=== PATIENT | male | born 1975 | race Caucasian/White ===

== ENCOUNTER 2019-04-30 17:34 | Emergency (ER) | payer SELFPAY ==
[~2019-04-30] VITALS: Ht 182.9 cm; Wt 99.8 kg
--- NOTE | 2019-04-30 17:34 | NUR ---
BROUGHT IN BY OLEG ABMROSIO, REPORT GIVEN TO WILLIAM
[2019-04-30 17:35] VITALS: BP_SYST 137
--- NOTE | 2019-04-30 17:38 | NUR ---
Pt [id number] [facility] law enforcement for medical clearance prior to booking. Pt reports his hands are dry and cracks s/p working on concrete. Denies n/v/d/cp/sob. No other injuries/complaints per pt/noted. Will continue to monitor
--- NOTE | 2019-04-30 17:41 | NUR ---
DR GÓMEZ AT BEDSIDE FOR EVALUATION
[2019-04-30 17:52] VITALS: BP_SYST 129
--- NOTE | 2019-04-30 17:52 | NUR ---
Patient given written and verbal discharge instructions and verbalizes understanding. ER MD Buenrostro discussed with patient the results and treatment provided. Patient in stable condition. ID arm band removed. No Rx given. Patient educated on pain management and to follow up with PMD. Pain Scale 0. Opportunity for questions provided and answered. Medication side effect fact sheet provided.
== END 2019-04-30 17:52 ==
LOC: SED 17:34
DX: Z02.89 Encounter for other administrative examinations (principal)
CPT/HCPCS: 99283

== ENCOUNTER 2019-06-16 03:19 | Emergency (ER) | payer SELFPAY ==
[~2019-06-16] VITALS: Ht 182.9 cm; Wt 97.5 kg
[2019-06-16 03:20] VITALS: BP_SYST 148
[2019-06-16 04:20] VITALS: BP_SYST 137
== END 2019-06-16 04:20 | disposition home or self-care (01) ==
LOC: SED 03:19
DX: S63.592A Other specified sprain of left wrist, initial encounter (principal); W22.8XXA Striking against or struck by other objects, initial encounter; Y93.83 Activity, rough housing and horseplay; Y92.59 Other trade areas as the place of occurrence of the external cause; Y99.8 Other external cause status
CPT/HCPCS: 99284

== ENCOUNTER 2020-04-15 12:18 | Emergency (ER) | payer SELFPAY ==
[~2020-04-15] VITALS: Ht 182.9 cm; Wt 104.3 kg
[2020-04-15 12:18] VITALS: BP_SYST 163
[2020-04-15] MEDS ORDERED: IBUP100T8 PO (13:11)
[2020-04-15] MEDS ORDERED: AMOX-426 PO (13:15)
[2020-04-15 13:23] VITALS: BP_SYST 163
[2020-04-15] MEDS ORDERED: ACET325T PO (13:24)
== END 2020-04-15 13:23 | disposition home or self-care (01) ==
LOC: SED 12:18
DX: K08.89 Other specified disorders of teeth and supporting structures (principal); Z79.899 Other long term (current) drug therapy
CPT/HCPCS: 99283

== ENCOUNTER 2021-05-03 20:13 | Emergency (ER) | payer MEDICAID ==
[~2021-05-03] VITALS: Ht 182.9 cm; Wt 108.9 kg
[~2021-05-03 20:13] MED LIST: ACET325T PO; AMOX-426 PO
[2021-05-03 20:17] VITALS: BP_SYST 122
[2021-05-03] MEDS ORDERED: GABAPENTIN 100 MG CAPSULE PO ONE (20:45)
[2021-05-03] MEDS ORDERED: KETOROLAC TROMETHAMINE 15 MG VIAL IM ONE (20:45)
[2021-05-03] MEDS ORDERED: CYCLOBENZAPRINE HCL 10 MG TABLET (FLEXERIL) PO ONE (20:45)
[2021-05-03] MEDS ORDERED: ACETAMINOPHEN 500 MG TABLET PO ONE (20:45)
[2021-05-03 21:03] LABS: BASOPHILS % (AUTO) 0.3 % (0.0-2.0); EOSINOPHILS # (AUTO) 0.2 K/uL (0.0-0.4); EOSINOPHILS % (AUTO) 3.6 % (0.0-4.0); HEMATOCRIT 42.7 % (36-54); HEMOGLOBIN 14.2 g/dL (14.0-18.0); LYMPHOCYTES # (AUTO) 1.5 K/uL (1.0-5.5); LYMPHOCYTES % (AUTO) 24.7 % (20.5-51.5); MEAN CORPUSCULAR HEMOGLOBIN 30 pg (27-31); MEAN CORPUSCULAR HGB CONC 33 % (32-36); MEAN CORPUSCULAR VOLUME 91 fL (79.0-98.0); MONOCYTES # (AUTO) 0.7 K/uL (0.0-1.0); MONOCYTES % (AUTO) 10.7 % (1.7-9.3); NEUTROPHILS # (AUTO) 3.8 K/uL (1.8-7.7); NEUTROPHILS % (AUTO) 60.7 % (40.0-70.0); PLATELET COUNT (AUTO) 185 K/uL (130-430); RED BLOOD CELL COUNT(AUTO) 4.68 MIL/uL (4.2-6.2); RED CELL DISTRIBUTION WIDTH 12.8 % (9.0-15.0); WHITE BLOOD COUNT (AUTO) 6.2 K/uL (4.8-10.8)
[2021-05-03 21:19] LABS: CALCIUM 8.4 mg/dL (8.4-11.0); CREATININE 1.11 mg/dL (0.55-1.30); POTASSIUM 4.1 mmol/L (3.5-5.1)
[2021-05-03 21:25] LABS: ALBUMIN 2.8 g/dL (3.4-4.8); TOTAL BILIRUBIN 1.1 mg/dL (0.0-1.0)
[2021-05-03] MEDS ORDERED: NAPR-688 PO (22:01)
[2021-05-03] MEDS ORDERED: LIDO1ADH22 TP (22:01)
[2021-05-03] MEDS ORDERED: NEU300 PO (22:01)
[2021-05-03 22:14] LABS: ERYTHROCYTE SEDIMENTATION RATE 22 MM/HR (0-15)
[2021-05-03 22:17] VITALS: BP_SYST 119
[2021-05-03 23:10] LABS: C-REACTIVE PROTEIN QUANT 0.9 mg/dL (0-0.5)
== END 2021-05-03 22:17 | disposition home or self-care (01) ==
LOC: SED 20:13
DX: M51.26 Other intervertebral disc displacement, lumbar region (principal); F15.90 Other stimulant use, unspecified, uncomplicated
CPT/HCPCS: 36415; 72131; 76376; 80053; 83605; 85025; 85651; 86140; 96372; 99284; J1885

== ENCOUNTER 2022-09-11 12:51 | Inpatient (IN) | payer MEDICAID ==
[~2022-09-11] VITALS: Ht 185.4 cm; Wt 113.4 kg
[~2022-09-11 12:51] MED LIST changes: +LIDO1ADH22 TP; +NAPR-688 PO; +NEU300 PO
[2022-09-11 13:06] VITALS: BP_SYST 136; PULSE 96; RESP 20; TEMP 98.1; O2SAT 95
[2022-09-11] MEDS ORDERED: NACL 0.9% 1,000 ML IV ONE (15:45)
[2022-09-11] MEDS ORDERED: MORPHINE 4 MG INJ. 4 MG/ML VIAL IVP ONE (15:45)
[2022-09-11] MEDS ORDERED: KETOROLAC TROMETHAMINE 30 MG VIAL IVP ONE (15:45)
[2022-09-11 16:02] LABS: BILIRUBIN,URINE NEGATIVE (NEGATIVE); BLOOD, URINE 1+ (NEGATIVE); CLARITY/URINE CLEAR (CLEAR); COLOR,URINE YELLOW (YELLOW); GLUCOSE,URINE NEGATIVE (NEGATIVE); KETONES,URINE NEGATIVE (NEGATIVE); LEUKOCYTE ESTERASE ,URINE NEGATIVE (NEGATIVE); NITRITE, URINE NEGATIVE (NEGATIVE); PH,URINE 6.5 (5.0-8.0); PROTEIN URINE NEGATIVE (NEGATIVE)
[2022-09-11 16:10] LABS: BASOPHILS % (AUTO) 0.3 % (0.0-2.0); EOSINOPHILS # (AUTO) 0.1 K/uL (0.0-0.4); EOSINOPHILS % (AUTO) 0.3 % (0.0-4.0); HEMATOCRIT 45.6 % (36-54); LYMPHOCYTES # (AUTO) 1.7 K/uL (1.0-5.5); LYMPHOCYTES % (AUTO) 10.7 % (20.5-51.5); MEAN CORPUSCULAR HEMOGLOBIN 30 pg (27-31); MEAN CORPUSCULAR HGB CONC 33 % (32-36); MEAN CORPUSCULAR VOLUME 91 fL (79.0-98.0); MONOCYTES # (AUTO) 1.8 K/uL (0.0-1.0); MONOCYTES % (AUTO) 11.9 % (1.7-9.3); NEUTROPHILS # (AUTO) 11.9 K/uL (1.8-7.7); NEUTROPHILS % (AUTO) 76.8 % (40.0-70.0); PLATELET COUNT (AUTO) 216 K/uL (130-430); RED BLOOD CELL COUNT(AUTO) 5.02 MIL/uL (4.2-6.2); RED CELL DISTRIBUTION WIDTH 13.1 % (9.0-15.0); WHITE BLOOD COUNT (AUTO) 15.5 K/uL (4.8-10.8)
[2022-09-11 16:32] LABS: BARBITURATE, URINE NEGATIVE (NEG <=200); METHAMPHETAMINES SCREEN,URINE POSITIVE (NEG <=500); URINE AMPHETAMINE POSITIVE (NEG <=500)
[2022-09-11 16:34] LABS: BENZODIAZEPINE, URINE NEGATIVE (NEG <=150); CANNABINOID, URINE NEGATIVE (NEG <=50); COCAINE, URINE NEGATIVE (NEG <=150); OPIATE, URINE POSITIVE (NEG <=100); PHENCYCLIDINE SCREEN,URINE NEGATIVE (NEG <=25); UR TRICYCLIC ANTIDEPRESSANTS NEGATIVE (NEG <=300); URINE METHADONE NEGATIVE (NEG <=200); URINE OXYCODONE SCREEN NEGATIVE (NEG <=100); URINE PROPOXYPHENE SCREEN NEGATIVE (NEG <=300)
[2022-09-11 16:47] LABS: BACTERIA,URINE RARE /HPF (None Seen)
[2022-09-11 17:10] LABS: CALCIUM 9.5 mg/dL (8.4-11.0); CREATININE 1.8 mg/dL (0.55-1.30); POTASSIUM 5.5 mmol/L (3.5-5.1)
[2022-09-11 17:15] LABS: ALBUMIN 2.9 g/dL (3.4-4.8); TOTAL PROTEIN, SERUM 7.7 g/dL (6.4-8.3)
[2022-09-11] MEDS ORDERED: ONDANSETRON HCL 4 MG/2 ML VIAL IVP PRN (19:30)
[2022-09-11] MEDS ORDERED: MORPHINE 2 MG/ML INJ. SYRINGE IVP PRN (19:30)
[2022-09-11] MEDS: 0.45% NACL 1,000 ML IV SCH (21:34)
[2022-09-12] MEDS: 0.45% NACL 1,000 ML IV SCH ×2 (04:00→10:26)
[2022-09-12 08:26] VITALS: O2SAT 98
[2022-09-12] MEDS ORDERED: TAMSULOSIN HCL 0.4 MG CAP PO SCH (09:00)
[2022-09-12 10:13] VITALS: BP_SYST 128; PULSE 82; RESP 18; TEMP 97.9
[2022-09-12] MEDS ORDERED: KETOROLAC TROMETHAMINE 15 MG VIAL IM PRN (12:30)
[2022-09-12] MEDS ORDERED: PIPERACILLIN/TAZO 3.375/DEX-IS 50 ML IV SCH (14:00)
== END 2022-09-12 16:19 | disposition left against medical advice (07) | DRG 465 ==
LOC: SED 12:51 → SMU 19:20
PROVIDERS: ADMIT Internal Medicine; ATTEND Internal Medicine
DX: N20.2 Calculus of kidney with calculus of ureter (principal); E44.0 Moderate protein-calorie malnutrition; K74.60 Unspecified cirrhosis of liver; F15.929 Other stimulant use, unspecified with intoxication, unspecified; G62.9 Polyneuropathy, unspecified; Z53.29 Procedure and treatment not carried out because of patient's decision for other reasons; N39.0 Urinary tract infection, site not specified; Z86.19 Personal history of other infectious and parasitic diseases
CPT/HCPCS: 36415; 76376; 76770; 80053; 80307; 81000; 85025; 96361; 96374; 96375; 99285; J1885; J2270; J2405; J2543; J7030